=== PATIENT | female | born 1990 | race Two or more races ===

== ENCOUNTER 2016-12-11 18:18 | Inpatient (IN) | payer MEDICAID ==
[~2016-12-11] VITALS: Ht 147.3 cm; Wt 107.0 kg
[~2016-12-11 18:18] MED LIST: CEPH-37 PO; INSULIN GLARGINE SC; METF1000 PO; TRAM50TA2 PO; [UNRECOGNIZED DRUG - CODE] PO; [UNRECOGNIZED DRUG - OTHER]
[2016-12-11 20:45] LABS: Basophils # (auto) 0 uL; Basophils % (auto) 0.2 % (0.0-2.0); DEFINITIVE VIEW TRANSMISSION; Eosinophils # (auto) 0.2 uL; Eosinophils % (auto) 1.7 % (0.0-7.0); Hematocrit 44.5 % (36.0-46.0); Hemoglobin 14.7 g/dL (12.2-16.2); Lymphocytes % (auto) 30.2 % (10.0-50.0); Mean Corpuscular Hemoglobin 26.8 pg (28.0-32.0); Mean Corpuscular Volume 81.1 fL (80.0-100.0); Mean Platelet Volume 9.1 fL (7.4-10.4); Monocytes # (auto) 0.6 uL; Monocytes % (auto) 6.2 % (0.0-12.0); Neutrophils # (auto) 6.1 uL; Neutrophils % (auto) 61.7 % (37.0-80.0); Platelet Count (auto) 352 10^3/uL (140-450); Red Cell Distribution Width 13.4 % (11.6-16.0); White Blood Cell 9.9 10^3/uL (4.4-10.8)
[2016-12-11 21:06] LABS: Albumin 3.3 g/dL (3.4-5.0); Anion Gap 13 (5-15); Blood Urea Nitrogen 14 mg/dL (7-18); Calcium 8.8 mg/dL (8.5-10.1); Carbon Dioxide 21 mmol/L (21-32); Chloride 98 mmol/L (98-107); Potassium 3.4 mmol/L (3.5-5.1); Sodium 132 mmol/L (136-145)
[2016-12-11 21:08] LABS: Aspartate Aminotransferase 15 U/L (15-37); BUN/Creatinine Ratio 19.4; Bilirubin, Total 0.2 mg/dL (0.2-1.0); GFR African American 125 mL/min; GFR Non-African American 103 mL/min; Total Protein 8.6 g/dL (6.4-8.2)
[2016-12-11 21:11] LABS: Alkaline Phosphatase 117 U/L (45-117)
[2016-12-11 21:43] LABS: Glucose 514 mg/dL (74-106)
[2016-12-11 22:00] LABS: B-Type Natriuretic Peptide 4.06 pg/mL (0-100)
[2016-12-11] MEDS ORDERED: InsuLIN REG 1unit/0.01ml Soln (100units/ml) IV ONE (22:00)
[2016-12-11] MEDS ORDERED: SODIUM CHLORIDE 0.9% 2,000 ML IV ONE (22:00)
[2016-12-11 22:05] LABS: Temperature: 22.9 C (20.0-25.0)
[2016-12-11 23:56] LABS: Urine Bilirubin Negative (Negative); Urine Blood Negative /uL (Negative); Urine Color Yellow (Yellow); Urine Mucus FEW (None Seen); Urine Nitrite Negative (Negative); Urine RBC 1 /hpf (0 - 4); Urine Squamous Epithelial Cell FEW /hpf (<5); Urine Urobilinogen Normal (Negative); Urine pH 5.5 (5.0-8.0)
[2016-12-11 23:57] LABS: Urine Glucose 4+ mg/dL (Normal); Urine Ketone 1+ (Negative)
[2016-12-12] MEDS ORDERED: cefTRIAXone 1GM/50ML D5W 50 ML IV ONE (00:30)
[2016-12-12] MEDS ORDERED: MORPHINE SULF INJ 2 MG/ML SYRINGE 1ML IV PRN (03:45)
[2016-12-12] MEDS ORDERED: ASPirin 81 mg TAB PO ONE (03:45)
[2016-12-12] MEDS ORDERED: NITROGLYCERIN 0.4 MG SL TAB SL PRN (03:45)
[2016-12-12] MEDS ORDERED: DEXTROSE (50%) 50ML SYRG IV PRN (03:45)
[2016-12-12] MEDS: SODIUM CHLORIDE 0.9% 1,000 ML IV SCH ×4 (04:15→23:19)
[2016-12-12] MEDS: ACCU-CHEK COMFORT CURVE STRIP VI SCH ×5 (06:35→21:32)
[2016-12-12] MEDS: InsuLIN REG 1unit/0.01ml Soln (100units/ml) SC SCH ×5 (06:50→21:44)
[2016-12-12] MEDS: ENALAPRIL MALEATE 10 MG TAB PO SCH (10:33)
[2016-12-12] MEDS: ASPirin 81 mg TAB PO SCH (10:33)
[2016-12-12] MEDS: FAMOTIDINE (10MG/ML) 2ML VL IV SCH ×2 (10:33→21:30)
[2016-12-12] MEDS: METOPROLOL TARTRATE 25 MG TAB PO SCH ×3 (10:33→22:00)
[2016-12-12 13:33] VITALS: BP 100/67
[2016-12-12] MEDS ORDERED: GLIP-115 PO (14:02)
[2016-12-12] MEDS: cefTRIAXone 1GM/50ML D5W 50 ML IV SCH (21:30)
[2016-12-12] MEDS: ATORVASTATIN 20 MG TAB PO SCH (21:31)
[2016-12-12] MEDS: INSULIN DETEMIR(LEVEMIR) 1unit/0.01ml Soln (100units/ml) SC SCH (21:42)
[2016-12-12 22:00] VITALS: BP 124/60
[2016-12-13] VITALS (7 sets, daily range): BP systolic 84–119; BP diastolic 46–66
[2016-12-13] MEDS: ACCU-CHEK COMFORT CURVE STRIP VI SCH ×6 (01:48→21:45)
[2016-12-13] MEDS: InsuLIN REG 1unit/0.01ml Soln (100units/ml) SC SCH ×6 (01:54→21:57)
[2016-12-13] MEDS: SODIUM CHLORIDE 0.9% 1,000 ML IV SCH ×3 (05:09→20:13)
[2016-12-13 06:16] LABS: Basophils # (auto) 0 uL; Basophils % (auto) 0.3 % (0.0-2.0); DEFINITIVE VIEW TRANSMISSION; Eosinophils # (auto) 0.2 uL; Eosinophils % (auto) 2.3 % (0.0-7.0); Hematocrit 35.6 % (36.0-46.0); Hemoglobin 11.9 g/dL (12.2-16.2); Lymphocytes % (auto) 34.8 % (10.0-50.0); Mean Corpuscular Hemoglobin 26.8 pg (28.0-32.0); Mean Corpuscular Hgb Conc. 33.5 g/dL (32.0-36.0); Mean Corpuscular Volume 80.1 fL (80.0-100.0); Mean Platelet Volume 8.9 fL (7.4-10.4); Monocytes # (auto) 0.6 uL; Monocytes % (auto) 7.1 % (0.0-12.0); Neutrophils # (auto) 4.7 uL; Neutrophils % (auto) 55.5 % (37.0-80.0); Platelet Count (auto) 272 10^3/uL (140-450); Red Cell Distribution Width 13.6 % (11.6-16.0); White Blood Cell 8.5 10^3/uL (4.4-10.8)
[2016-12-13 06:35] LABS: Albumin 2.4 g/dL (3.4-5.0); Calcium 7.7 mg/dL (8.5-10.1); Potassium 3.5 mmol/L (3.5-5.1)
[2016-12-13 06:38] LABS: BUN/Creatinine Ratio 35.1
[2016-12-13 06:40] LABS: Bilirubin, Total 0.1 mg/dL (0.2-1.0)
[2016-12-13] MEDS ORDERED: IOHEXOL 350 MG/ML 100ML IJ ONE (09:43)
[2016-12-13] MEDS ORDERED: METOPROLOL TARTRATE 1MG/1ML-5ML VIAL IV ONE (09:50)
[2016-12-13] MEDS ORDERED: NITROGLYCERIN 0.4 MG SL TAB SL ONE (09:50)
[2016-12-13] MEDS: METOPROLOL TARTRATE 25 MG TAB PO SCH ×2 (10:00→21:45)
[2016-12-13] MEDS: ASPirin 81 mg TAB PO SCH (10:00)
[2016-12-13] MEDS: ENALAPRIL MALEATE 10 MG TAB PO SCH (10:00)
[2016-12-13] MEDS: FAMOTIDINE (10MG/ML) 2ML VL IV SCH ×2 (10:00→21:44)
[2016-12-13] MEDS: glipiZIDE 5 MG TAB PO SCH (17:43)
[2016-12-13] MEDS: ATORVASTATIN 20 MG TAB PO SCH (21:44)
[2016-12-13] MEDS: cefTRIAXone 1GM/50ML D5W 50 ML IV SCH (21:44)
[2016-12-13] MEDS: INSULIN DETEMIR(LEVEMIR) 1unit/0.01ml Soln (100units/ml) SC SCH (21:58)
[2016-12-14] MEDS: ACCU-CHEK COMFORT CURVE STRIP VI SCH ×3 (01:38→10:00)
[2016-12-14] MEDS: SODIUM CHLORIDE 0.9% 1,000 ML IV SCH ×2 (01:43→09:03)
[2016-12-14] MEDS: InsuLIN REG 1unit/0.01ml Soln (100units/ml) SC SCH ×3 (01:43→10:00)
[2016-12-14 05:00] VITALS: BP 108/68
[2016-12-14] MEDS: glipiZIDE 5 MG TAB PO SCH (06:40)
[2016-12-14 07:48] LABS: BUN/Creatinine Ratio 29.4; Potassium 4.4 mmol/L (3.5-5.1)
[2016-12-14 07:50] LABS: Calcium 7.7 mg/dL (8.5-10.1)
[2016-12-14 09:00] VITALS: BP 108/65
[2016-12-14] MEDS: ENALAPRIL MALEATE 10 MG TAB PO SCH (10:34)
[2016-12-14] MEDS: FAMOTIDINE (10MG/ML) 2ML VL IV SCH (10:35)
[2016-12-14] MEDS: ASPirin 81 mg TAB PO SCH (10:35)
[2016-12-14] MEDS: METOPROLOL TARTRATE 25 MG TAB PO SCH (10:35)
[2016-12-14 11:07] VITALS: BP 108/65
== END 2016-12-14 11:55 | disposition home or self-care (01) | DRG 420 ==
LOC: ER 18:20 → TELE 18:21 → TELE-E-ADS 12-12 13:01 → TELE-EAST 12-12 18:47
PROVIDERS: ADMIT Family Medicine; ATTEND Internal Medicine
DX: E10.10 Type 1 diabetes mellitus with ketoacidosis without coma (principal); E44.0 Moderate protein-calorie malnutrition; Z68.42 Body mass index [BMI] 45.0-49.9, adult; E66.01 Morbid (severe) obesity due to excess calories; J45.901 Unspecified asthma with (acute) exacerbation; L08.9 Local infection of the skin and subcutaneous tissue, unspecified; J20.9 Acute bronchitis, unspecified; I10 Essential (primary) hypertension; J06.9 Acute upper respiratory infection, unspecified; M94.0 Chondrocostal junction syndrome [Tietze]; Z83.3 Family history of diabetes mellitus; Z82.49 Family history of ischemic heart disease and other diseases of the circulatory system; Z87.440 Personal history of urinary (tract) infections; Z79.4 Long term (current) use of insulin; Z84.1 Family history of disorders of kidney and ureter
CPT/HCPCS: 36415; 36600; 71010; 75571; 75574; 80048; 80053; 81001; 82010; 82805; 82962; 83036; 83605; 83880; 84484; 84702; 85025; 87040; 93005; 96361; 96365; 96375; G0434; J0696; J1815; J3490

== ENCOUNTER 2017-03-20 20:30 | Emergency (ER) | payer MEDICAID ==
[~2017-03-20] VITALS: Ht 149.9 cm; Wt 102.5 kg
[~2017-03-20 20:30] MED LIST changes: -CEPH-37 PO; +GLIP-115 PO; -TRAM50TA2 PO; -[UNRECOGNIZED DRUG - CODE] PO
[2017-03-20 21:14] LABS: Basophils # (auto) 0 uL; Basophils % (auto) 0.2 % (0.0-2.0); CONDITION AutoValidated; Eosinophils # (auto) 0.1 uL; Eosinophils % (auto) 1.3 % (0.0-7.0); Hematocrit 36.9 % (36.0-46.0); Hemoglobin 12.3 g/dL (12.2-16.2); Lymphocytes # (auto) 2.9 uL; Lymphocytes % (auto) 34.7 % (10.0-50.0); Mean Corpuscular Hemoglobin 27.4 pg (28.0-32.0); Mean Corpuscular Hgb Conc. 33.4 g/dL (32.0-36.0); Mean Corpuscular Volume 81.9 fL (80.0-100.0); Mean Platelet Volume 8.3 fL (7.4-10.4); Monocytes # (auto) 0.5 uL; Monocytes % (auto) 6.1 % (0.0-12.0); Neutrophils # (auto) 4.9 uL; Neutrophils % (auto) 57.7 % (37.0-80.0); Platelet Count (auto) 328 10^3/uL (140-450); Red Cell Distribution Width 13.2 % (11.6-16.0); White Blood Cell 8.4 10^3/uL (4.4-10.8)
[2017-03-20 21:27] LABS: Partial Thromboplastin Time 26.4 sec (22.64-33.71); Prothrombin Time 9.6 sec (9.37-12.3)
[2017-03-20 21:28] LABS: INR 0.88 (0.9-1.15)
[2017-03-20 21:33] LABS: BUN/Creatinine Ratio 28.6; Bilirubin, Total 0.2 mg/dL (0.2-1.0); Potassium 3.8 mmol/L (3.5-5.1); Total Protein 7.3 g/dL (6.4-8.2)
[2017-03-20 21:52] LABS: Urine Bilirubin Negative (Negative); Urine Color Yellow (Yellow); Urine Ketone TRACE (Negative); Urine Mucus FEW (None Seen); Urine Nitrite Negative (Negative); Urine RBC <1 /hpf (0 - 4); Urine Squamous Epithelial Cell MANY /hpf (<5); Urine pH 5.5 (5.0-8.0)
[2017-03-20 22:05] LABS: Urine Blood 2+ /uL (Negative); Urine Glucose 4+ mg/dL (Normal)
[2017-03-21 00:54] VITALS: BP 115/78
[2017-03-21] MEDS ORDERED: SODIUM CHLORIDE 0.9% 1,000 ML IV ONE (01:15)
[2017-03-21 02:12] LABS: Vaginal Bacteria Moderate; Vaginal Clue Cells Rare; Vaginal Epithelial Cells Few; Vaginal RBC Rare; Vaginal Trichomonas Not Present; Vaginal WBC Few; Vaginal Yeast Rare
== END 2017-03-21 01:52 | disposition home or self-care (01) ==
LOC: ER 20:30
DX: O23.41 Unspecified infection of urinary tract in pregnancy, first trimester (principal); O24.111 Pre-existing type 2 diabetes mellitus, in pregnancy, first trimester; E11.65 Type 2 diabetes mellitus with hyperglycemia; O16.1 Unspecified maternal hypertension, first trimester; Z3A.00 Weeks of gestation of pregnancy not specified
CPT/HCPCS: 36415; 80053; 81001; 84702; 85025; 85610; 85730; 87070; 87210; 96360; 99284; J7030

== ENCOUNTER → 2020-02-15 | Emergency (ER) | payer SELFPAY ==
[~2020-02-15] VITALS: Ht 147.3 cm; Wt 93.0 kg
[~2020-02-15] MED LIST changes: -GLIP-115 PO; +GLIP5TAB12 PO; +HYDROmorphone HCL 2 MG/ML VL IV ONE; +ONDANSETRON HCL 4 MG/2 ML VIAL IV ONE
[2020-02-15 14:44] VITALS: BP 117/65
[2020-02-15 15:22] LABS: Basophils # (auto) 0 10 ^3/uL (0-0.2); Basophils % (auto) 0.3 % (0.0-2.0); Eosinophils # (auto) 0.1 10 ^3/uL (0-0.8); Eosinophils % (auto) 1.2 % (0.0-7.0); Hematocrit 41.7 % (36.0-46.0); Lymphocytes # (auto) 2.8 10 ^3/uL (0.4-5.4); Lymphocytes % (auto) 28.8 % (10.0-50.0); Mean Corpuscular Hemoglobin 28.3 pg (28.0-32.0); Mean Corpuscular Hgb Conc. 33.6 g/dL (32.0-36.0); Mean Corpuscular Volume 84.3 fL (80.0-100.0); Monocytes # (auto) 0.7 10 ^3/uL (0-1.3); Neutrophils % (auto) 62.7 % (37.0-80.0); Platelet Count (auto) 293 10^3/uL (140-450); Red Blood Cells 4.95 10^6/uL (4.0-5.20); Red Cell Distribution Width 12.8 % (11.8-14.3); White Blood Cell 9.6 10^3/uL (4.4-10.8)
[2020-02-15 15:23] LABS: Urine Amorphous Crystal FEW /hpf (None Seen); Urine Bacteria NONE SEEN /hpf (None Seen); Urine Blood Negative /uL (Negative); Urine Mucus FEW (None Seen); Urine Specific Gravity 1.026 (1.001-1.035); Urine WBC 2 /hpf (0 - 5)
[2020-02-15 15:33] LABS: Albumin 3.1 g/dL (3.4-5.0); BUN/Creatinine Ratio 23.7; Calcium 9.3 mg/dL (8.5-10.1); Potassium 3.9 mmol/L (3.5-5.1)
[2020-02-15 15:35] LABS: Bilirubin, Total 0.3 mg/dL (0.2-1.0); Total Protein 7.9 g/dL (6.4-8.2)
== END | disposition home or self-care (01) ==
LOC: ER 14:17
DX: R10.11 Right upper quadrant pain (principal); R11.2 Nausea with vomiting, unspecified; E11.9 Type 2 diabetes mellitus without complications; I10 Essential (primary) hypertension; Z87.440 Personal history of urinary (tract) infections
CPT/HCPCS: 36415; 76705; 80053; 81001; 81025; 82150; 83690; 85025; 96374; 96375; 99284; J1170; J2405

== ENCOUNTER 2021-05-04 14:30 | Emergency (ER) | payer MEDICAID, OTHER ==
[~2021-05-04] VITALS: Ht 149.9 cm; Wt 83.5 kg
[~2021-05-04 14:30] MED LIST changes: -HYDROmorphone HCL 2 MG/ML VL IV ONE; -ONDANSETRON HCL 4 MG/2 ML VIAL IV ONE
[2021-05-04 15:26] LABS: Basophils # (auto) 0 10 ^3/uL (0-0.2); Basophils % (auto) 0.4 % (0.0-2.0); Eosinophils # (auto) 0.2 10 ^3/uL (0-0.8); Eosinophils % (auto) 1.3 % (0.0-7.0); Hematocrit 43.2 % (36.0-46.0); Hemoglobin 14.9 g/dL (12.2-16.2); Lymphocytes # (auto) 2.2 10 ^3/uL (0.4-5.4); Lymphocytes % (auto) 17.4 % (10.0-50.0); Mean Corpuscular Hgb Conc. 34.4 g/dL (32.0-36.0); Mean Corpuscular Volume 84.3 fL (80.0-100.0); Monocytes # (auto) 0.5 10 ^3/uL (0-1.3); Neutrophils # (auto) 9.6 10 ^3/uL (1.6-8.6); Neutrophils % (auto) 76.9 % (37.0-80.0); Nucleated Red Blood Cells % 0.1 %; Red Blood Cells 5.13 10^6/uL (4.0-5.20); Red Cell Distribution Width 12.7 % (11.8-14.3); White Blood Cell 12.5 10^3/uL (4.4-10.8)
[2021-05-04 15:38] LABS: Albumin 3.7 g/dL (3.4-5.0); BUN/Creatinine Ratio 14.7; Potassium 4.3 mmol/L (3.5-5.1)
[2021-05-04 15:41] LABS: Bilirubin, Total 0.5 mg/dL (0.2-1.0); Total Protein 8.7 g/dL (6.4-8.2)
[2021-05-04] MEDS ORDERED: SODIUM CHLORIDE 0.9% 1,000 ML IV ONE ×2 (16:15)
[2021-05-04] MEDS ORDERED: InsuLIN REG 1unit/0.01ml Soln (100units/ml) IV ONE (16:15)
[2021-05-04 18:00] LABS: Urine Bacteria FEW /hpf (None Seen); Urine Blood Negative /uL (Negative); Urine Specific Gravity 1.034 (1.001-1.035); Urine WBC <1 /hpf (0 - 5)
[2021-05-04 18:09] VITALS: BP 111/66
== END 2021-05-04 19:05 | disposition home or self-care (01) ==
LOC: ER 14:30
DX: E11.65 Type 2 diabetes mellitus with hyperglycemia (principal); I10 Essential (primary) hypertension
CPT/HCPCS: 36415; 80053; 81001; 82010; 82962; 83036; 85025; 96361; 96374; 99283; J1815; J7030

== ENCOUNTER 2021-09-17 20:50 | Emergency (ER) | payer OTHER ==
[~2021-09-17] VITALS: Ht 147.3 cm; Wt 81.6 kg
[2021-09-17 22:51] LABS: Urine Bacteria NONE SEEN /hpf (None Seen); Urine Blood Negative /uL (Negative); Urine Specific Gravity 1.046 (1.001-1.035); Urine WBC 4 /hpf (0 - 5)
[2021-09-17 23:12] LABS: Basophils # (auto) 0 10 ^3/uL (0-0.2); Basophils % (auto) 0.4 % (0.0-2.0); Eosinophils # (auto) 0.1 10 ^3/uL (0-0.8); Eosinophils % (auto) 1.4 % (0.0-7.0); Hematocrit 46.6 % (36.0-46.0); Hemoglobin 15.4 g/dL (12.2-16.2); Lymphocytes # (auto) 4.2 10 ^3/uL (0.4-5.4); Mean Corpuscular Hemoglobin 28.4 pg (28.0-32.0); Mean Corpuscular Hgb Conc. 33.1 g/dL (32.0-36.0); Mean Corpuscular Volume 85.7 fL (80.0-100.0); Monocytes # (auto) 0.8 10 ^3/uL (0-1.3); Monocytes % (auto) 7.3 % (0.0-12.0); Neutrophils # (auto) 5.6 10 ^3/uL (1.6-8.6); Neutrophils % (auto) 51.9 % (37.0-80.0); Nucleated Red Blood Cells % 0.3 %; Red Blood Cells 5.44 10^6/uL (4.0-5.20); Red Cell Distribution Width 13.3 % (11.8-14.3); White Blood Cell 10.7 10^3/uL (4.4-10.8)
[2021-09-17 23:31] LABS: Albumin 3.6 g/dL (3.4-5.0); BUN/Creatinine Ratio 23.8; Calcium 9.8 mg/dL (8.5-10.1); Potassium 4.3 mmol/L (3.5-5.1)
[2021-09-17 23:40] LABS: Bilirubin, Total 0.3 mg/dL (0.2-1.0); Total Protein 8.1 g/dL (6.4-8.2)
[2021-09-18 02:38] VITALS: BP 112/80
== END 2021-09-18 02:42 | disposition home or self-care (01) ==
LOC: ER 20:51
DX: E11.65 Type 2 diabetes mellitus with hyperglycemia (principal); R41.82 Altered mental status, unspecified; I10 Essential (primary) hypertension
CPT/HCPCS: 36415; 80053; 81001; 82010; 82962; 85025; 93005

== ENCOUNTER 2022-05-01 05:18 | Emergency (ER) | payer OTHER ==
[~2022-05-01] VITALS: Ht 147.3 cm; Wt 83.2 kg
[2022-05-01 05:23] VITALS: BP 112/83
[2022-05-01] MEDS ORDERED: DexAMETHasone SOD PHOS 10MG/1ML VIAL INJ IM ONE (05:45)
[2022-05-01] MEDS ORDERED: FAMOTIDINE 20 MG TAB PO ONE (05:45)
[2022-05-01] MEDS ORDERED: diphenhdrAMINE HCL 25 MG CAP PO ONE (05:45)
[2022-05-01] MEDS ORDERED: EPINEPHrine HCL 1 MG/1 ML AMP SC ONE (07:00)
[2022-05-01] MEDS ORDERED: METH4PAK PO (07:07)
[2022-05-01] MEDS ORDERED: HYDR25CA PO (07:07)
[2022-05-01] MEDS ORDERED: CIPR-173 PO (07:07)
== END 2022-05-01 07:19 | disposition home or self-care (01) ==
LOC: ER 05:18
DX: T78.40XA Allergy, unspecified, initial encounter (principal); T50.995A Adverse effect of other drugs, medicaments and biological substances, initial encounter; E11.9 Type 2 diabetes mellitus without complications; I10 Essential (primary) hypertension; X58.XXXA Exposure to other specified factors, initial encounter; Y92.9 Unspecified place or not applicable
CPT/HCPCS: 96372; 99284; J0171; J1100

== ENCOUNTER 2022-07-31 03:42 | Emergency (ER) | payer OTHER ==
[~2022-07-31] VITALS: Ht 147.3 cm; Wt 90.8 kg
[~2022-07-31 03:42] MED LIST changes: +CIPR-173 PO; +HYDR25CA PO; +METH4PAK PO
[2022-07-31 04:41] LABS: Basophils # (auto) 0 10 ^3/uL (0-0.2); Basophils % (auto) 0.6 % (0.0-2.0); Eosinophils # (auto) 0.2 10 ^3/uL (0-0.8); Eosinophils % (auto) 2.2 % (0.0-7.0); Hematocrit 41.3 % (36.0-46.0); Hemoglobin 14.1 g/dL (12.2-16.2); Lymphocytes # (auto) 3.4 10 ^3/uL (0.4-5.4); Lymphocytes % (auto) 40.2 % (10.0-50.0); Mean Corpuscular Hemoglobin 28.4 pg (28.0-32.0); Mean Corpuscular Hgb Conc. 34.1 g/dL (32.0-36.0); Mean Corpuscular Volume 83.3 fL (80.0-100.0); Monocytes # (auto) 0.6 10 ^3/uL (0-1.3); Monocytes % (auto) 7.4 % (0.0-12.0); Neutrophils # (auto) 4.2 10 ^3/uL (1.6-8.6); Neutrophils % (auto) 49.6 % (37.0-80.0); Red Blood Cells 4.95 10^6/uL (4.0-5.20); Red Cell Distribution Width 12.6 % (11.8-14.3); White Blood Cell 8.4 10^3/uL (4.4-10.8)
[2022-07-31 05:08] LABS: BUN/Creatinine Ratio 23.9; Calcium 9.1 mg/dL (8.5-10.1); Potassium 4.2 mmol/L (3.5-5.1)
[2022-07-31 05:11] LABS: Bilirubin, Total 0.4 mg/dL (0.2-1.0); Total Protein 7.4 g/dL (6.4-8.2)
[2022-07-31 05:14] LABS: Urine Bacteria NONE SEEN /hpf (None Seen); Urine Blood 1+ /uL (Negative); Urine WBC 1023 /hpf (0 - 5); Urine WBC Clumps PRESENT /hpf (None Seen)
[2022-07-31] MEDS ORDERED: CEPH-322 PO (05:45)
[2022-07-31 05:50] VITALS: BP 111/75
== END 2022-07-31 06:49 | disposition home or self-care (01) ==
LOC: ER 03:42
DX: N39.0 Urinary tract infection, site not specified (principal); E11.9 Type 2 diabetes mellitus without complications; Z79.4 Long term (current) use of insulin; Z79.899 Other long term (current) drug therapy; Z88.8 Allergy status to other drugs, medicaments and biological substances
CPT/HCPCS: 36415; 80053; 81001; 85025

== ENCOUNTER → 2024-12-13 | Outpatient (CLI) | payer OTHER ==
[~2024-12-13] MED LIST changes: +CEPH250C PO; -GLIP5TAB12 PO; +GLIP5TAB21 PO
[2024-12-13 14:27] LABS: Creatinine, Urine 118.32 mg/dL (30.0-125.0)
[2024-12-13 14:29] LABS: Alanine Aminotransferase 22 U/L (7-40); Albumin 4.2 g/dL (3.2-4.8); Alkaline Phosphatase 86 U/L (46-116); Anion Gap 5 (5-15); BUN/Creatinine Ratio 19.7 (10.0-20.0); Blood Urea Nitrogen 12 mg/dL (9-23); Calcium 9.5 mg/dL (8.7-10.4); Carbon Dioxide 27 mmol/L (20-31); Chloride 104 mmol/L (98-107); Potassium 4.2 mmol/L (3.5-5.1); Total Protein 7.2 g/dL (5.7-8.2)
[2024-12-13 14:30] LABS: Aspartate Aminotransferase 13 U/L (13-40); Bilirubin, Total 0.4 mg/dL (0.2-1.0); Cholesterol 211 mg/dL (< 200); Glucose 175 mg/dL (74-106); HDL Cholesterol 33 mg/dL (40-59); LDL Cholesterol 159 mg/dL (< 100); Sodium 136 mmol/L (136-145); Triglycerides 158 mg/dL (< 150)
== END | disposition home or self-care (01) ==
LOC: LAB 13:06
PROVIDERS: ATTEND Nurse Practitioner Family
DX: E11.9 Type 2 diabetes mellitus without complications (principal); E34.9 Endocrine disorder, unspecified; E66.9 Obesity, unspecified; Z00.01 Encounter for general adult medical examination with abnormal findings
CPT/HCPCS: 36415; 80053; 80061; 82043; 82306; 82570; 83036; 84443

== ENCOUNTER 2025-04-22 09:01 | Outpatient (CLI) | payer OTHER ==
[2025-04-22 10:19] LABS: Urine Protein, UAD Negative (Negative)
== END 2025-04-22 17:00 | disposition home or self-care (01) ==
LOC: LAB 09:01
PROVIDERS: ATTEND Nurse Practitioner Family
DX: N39.0 Urinary tract infection, site not specified (principal); E66.9 Obesity, unspecified; E08.65 Diabetes mellitus due to underlying condition with hyperglycemia
CPT/HCPCS: 81001; 82533; 87086; 87088; 87186